=== PATIENT | female | born 1945 | race Caucasian/White ===

== ENCOUNTER 2017-10-03 06:06 | Day surgery (SDC) | payer OTHER ==
[~2017-10-03] VITALS: Ht 165.1 cm; Wt 74.8 kg
[~2017-10-03 06:06] MED LIST: ADVAIR 250/501 DISK IH; AMBIEN10 MG PO; AMLODIPINE BESY10 MG PO; ASPIR 8181 M1 PO; ATORVASTATIN CA80 MG PO; Advair 250/50 Diskus IH; BUPROPION HCL150 M2 PO; CALCIUM CARBON600 M1 PO; CELEBREX200 MG PO; CELEXA40 MG PO; CITALOPRAM HBR40 MG PO; CLEOCIN150 MG PO; COUMADIN1 MG PO; COUMADIN2 MG PO; COUMADIN3 M1 PO; COUMADIN3 MG; COUMADIN3 MG PO; COUMADIN5 MG PO; CYANOCOBALAM1000 MCG PO; DICYCLOMINE HCL10 MG PO; FENOFIBRATE150 MG PO; FUROSEMIDE20 MG PO; IMDUR60 MG PO; ISOSORBIDE DINI30 MG PO; ISOSORBIDE MONO60 MG PO; LIPITOR40 MG PO; LOPRESSOR100 M1 PO; Lasix PO; Levaquin PO; METOPROLOL TAR100 MG PO; MIRALAX, GLYCO255 GM PO; NITROSTAT,NITR0.4 M1 SL; NORVASC10 MG PO; OMEPRAZOLE40 M1 PO; Prilosec PO; Proventil,Ventolin H IH; Robitussin AC,Tussi- PO; SENOKOT S,PE1 TABLET PO; THERAGRAN1 TABLET PO; TOPAMAX100 MG PO; TOPROL XL100 MG PO; TRAMADOL HCL50 MG PO; TRAZODONE HCL100 MG PO; TRICOR145 MG PO; VITAMIN D31000 UNI2 PO; VITAMIN D5000 INTUN PO; Vicodin,Lortab 5/500 PO; WELLBUTRIN XL150 MG; XALATAN 0.50 DROP/2. BOTH EYES
[2017-10-03] MEDS ORDERED: LOVENOX60 MG/0.6 SC (06:45)
[2017-10-03 06:51] LABS: PTT 26.9 SEC (25-37)
[2017-10-03 06:58] VITALS: BP 131/62
[2017-10-03 14:16] VITALS: BP 139/65
[2017-10-03 18:31] VITALS: BP 155/71
[2017-10-03 19:14] VITALS: BP 138/67
[2017-10-04] VITALS: BP 159/63
[2017-10-04 04:05] VITALS: BP 141/66
[2017-10-04 07:07] LABS: HEMATOCRIT 34.2 % (36.0-46.0); HEMOGLOBIN 10.7 G/DL (11.9-15.5); MCH 27.9 PG (29.0-34.0); MCHC 31.3 G/DL (30.0-36.0); MCV 89.3 FL (83-99); RBC DIS.WIDTH-CV 13.6 % (11.8-14.6); RBC DIS.WIDTH-SD 44.6 % (39-53); RED BLOOD COUNT 3.83 M/uL (3.80-5.20); WHITE BLOOD COUNT 8.7 K/uL (4.1-10.2)
[2017-10-04 07:15] LABS: INTER. NORMALIZED RATIO 1.1
[2017-10-04 07:20] VITALS: BP 146/65
[2017-10-04 07:28] LABS: PLATELET COUNT 146 K/uL (156-360)
[2017-10-04] MEDS ORDERED: DILAUDID2 MG PO (10:09)
== END 2017-10-04 12:56 | disposition home or self-care (01) ==
LOC: SDC 06:06 → RAD 07:30 → SDC 07:30 → 2SOUTH 13:28 → 2EAST 13:28 → ENRESERV 13:30 → CANRESERV 13:30 → ENRESERV 13:31 → 2EAST 13:57
PROVIDERS: Surgery
DX: C50.811 Malignant neoplasm of overlapping sites of right female breast (principal); Z17.0 Estrogen receptor positive status [ER+]; J44.9 Chronic obstructive pulmonary disease, unspecified; J45.20 Mild intermittent asthma, uncomplicated; E78.5 Hyperlipidemia, unspecified; K21.9 Gastro-esophageal reflux disease without esophagitis; G47.30 Sleep apnea, unspecified; Z86.73 Personal history of transient ischemic attack (TIA), and cerebral infarction without residual deficits; Z88.0 Allergy status to penicillin; Z79.01 Long term (current) use of anticoagulants; Z79.82 Long term (current) use of aspirin
CPT/HCPCS: 78195; 78999; 85027; 85610; 85730; 88305; 88307; 88309; 94799; A9541; G0378; J0330; J1650; J2250; J2270; J2405; J3010; J3480; Q0175; S0020